=== PATIENT | female | born 1955 | race Caucasian/White ===

== ENCOUNTER → 2022-05-03 | Outpatient (CLI) | payer OTHER | LOC: M RAD 12:42 | PROVIDERS: ATTEND Surgery | DX: I73.9 Peripheral vascular disease, unspecified (principal) ==

== ENCOUNTER 2022-05-25 08:38 | Inpatient (IN) | payer OTHER ==
[~2022-05-25] VITALS: Ht 157.5 cm; Wt 67.7 kg
[2022-05-25] MEDS ORDERED: ATOR1TAB19 PO (09:15)
[2022-05-25] MEDS ORDERED: LISI10TA24 PO (09:15)
[2022-05-25] MEDS ORDERED: TRUL0.5I SC (09:15)
[2022-05-25] MEDS ORDERED: METF-838 PO (09:15)
[2022-05-25] MEDS ORDERED: ASPI81CH33 PO (09:15)
[2022-05-25] MEDS ORDERED: NS 1,000 ML IV ONE (15:15)
[2022-05-25 15:37] LABS: BASO # 0.1 10^3/uL (0.0-0.2); BASO % 0.9 % (0.0-1.0); EOS # 0.4 10^3/uL (0.0-0.5); EOS % 4.3 % (0.0-3.0); LYMPH # 3.7 10^3/uL (1.5-5.0); LYMPH % 39.5 % (24.0-44.0); MEAN CORPUSCULAR HEMOGLOBIN 29.2 pg (27.0-33.0); MEAN CORPUSCULAR HGB CONC 32.6 g/dl (32.0-36.5); MEAN CORPUSCULAR VOLUME 89.7 fl (80.0-96.0); MONO # 0.8 10^3/uL (0.0-0.8); MONO % 8.5 % (2.0-8.0); NEUTROPHILS # 4.3 10^3/uL (1.5-8.5); NEUTROPHILS % 46.6 % (36.0-66.0); PLATELET COUNT, AUTOMATED 183 10^3/uL (150-450); RED BLOOD COUNT 5.13 10^6/uL (4.00-5.40); WHITE BLOOD COUNT 9.3 10^3/uL (4.0-10.0)
[2022-05-25 15:51] LABS: INR 0.96
[2022-05-25 15:52] LABS: PARTIAL THROMBOPLASTIN TIME 27.8 SECONDS (24.8-34.2)
[2022-05-25] MEDS ORDERED: ISOVUE-370 76% 100ML VIAL As Ordered ONE (16:14)
[2022-05-25] MEDS ORDERED: MORPHINE 2 MG/ML 1ML VIAL IV PRN (16:15)
[2022-05-25] MEDS ORDERED: ASPIRIN 81 MG CHEW TABLET PO ONE (16:15)
[2022-05-25] MEDS ORDERED: HEPARIN SOD (PORCINE) 5000UNITS/ML 1ML VIAL/SYRINGE IV ONE (16:15)
[2022-05-25] MEDS ORDERED: HEPARIN DRIP 25,000 UNITS in IV 1 EA IV SCH ×2 (16:15→17:55)
[2022-05-25] MEDS ORDERED: ATORVASTATIN 20 MG TAB PO ONE (16:15)
[2022-05-25] MEDS ORDERED: ACETAMINOPHEN TAB 650MG DOSE (2X325MG) PO PRN (16:50)
[2022-05-25] MEDS ORDERED: NICOTINE 14 MG/24 HR TRANSDERMAL TD ONE (17:00)
[2022-05-25] MEDS ORDERED: GLUCAGON INJ 1MG VIAL SC PRN (17:20)
[2022-05-25] MEDS ORDERED: DEXTROSE 50% 50 ML SYRINGE IV PRN (17:20)
[2022-05-25] MEDS ORDERED: GLUCOSE 4GM CHEW TABLET PO PRN (17:20)
[2022-05-25] MEDS: INSULIN LISPRO (NovoLOG) PER UNIT SC SCH ×2 (17:30→21:00)
[2022-05-25] MEDS ORDERED: HEPARIN SOD (PORCINE) 5000UNITS/ML 1ML VIAL/SYRINGE IV PRN (17:55)
[2022-05-25 18:14] LABS: CHOLESTEROL RISK RATIO 3.28 (<5); HDL CHOLESTEROL 47.2 MG/DL (>40); LDL CHOLESTEROL 90.6 MG/DL (<100)
[2022-05-25] MEDS ORDERED: HOME MED LIST COMPLETE! XX SCH (18:50)
[2022-05-25 21:15] VITALS: BP 115/60
[2022-05-25] MEDS ORDERED: ONDANSETRON 4MG 2ML VIAL IV PRN (23:40)
[2022-05-26] VITALS (14 sets, daily range): BP systolic 97–145; BP diastolic 45–67
[2022-05-26] MEDS ORDERED: carisoprodoL 350 MG TAB PO PRN
[2022-05-26] MEDS ORDERED: PERCOCET 5MG/325MG TAB PO ONE
[2022-05-26] MEDS ORDERED: ONDANSETRON 4MG ORAL DISINTEGRATING TAB PO PRN (00:20)
[2022-05-26 04:23] LABS: HEMATOCRIT 39.9 % (36.0-47.0); HEMOGLOBIN 13.1 g/dl (12.0-15.5); MEAN CORPUSCULAR HGB CONC 32.8 g/dl (32.0-36.5); MEAN CORPUSCULAR VOLUME 88.3 fl (80.0-96.0); PLATELET COUNT, AUTOMATED 156 10^3/uL (150-450); RED BLOOD COUNT 4.52 10^6/uL (4.00-5.40); WHITE BLOOD COUNT 8.3 10^3/uL (4.0-10.0)
[2022-05-26 04:53] LABS: ALBUMIN 3.6 G/DL (3.2-5.2); ALT/SGPT 17 U/L (7.0-40); BILIRUBIN,TOTAL 0.4 MG/DL (0.3-1.2); BLOOD UREA NITROGEN 10 MG/DL (9-23); CALCIUM LEVEL 8.9 MG/DL (8.3-10.6); CARBON DIOXIDE LEVEL 27 MMOL/L (20-31); CHLORIDE LEVEL 104 MMOL/L (98-107); CREATININE FOR GFR 0.68 MG/DL (0.55-1.30); GLOMERULAR FILTRATION RATE > 60.0 (>45); GLUCOSE, FASTING 103 MG/DL (74-106); POTASSIUM SERUM 4.2 MMOL/L (3.5-5.1); SODIUM LEVEL 139 MMOL/L (136-145)
[2022-05-26] MEDS: ATORVASTATIN 20 MG TAB PO SCH (09:05)
[2022-05-26] MEDS: ASPIRIN 81MG ENTERIC TABLET PO SCH (09:05)
[2022-05-26] MEDS: hydroCHLOROthiazide 12.5 MG CAPSULE PO SCH (09:06)
[2022-05-26] MEDS: INSULIN LISPRO (NovoLOG) PER UNIT SC SCH ×4 (09:06→20:21)
[2022-05-26] MEDS ORDERED: VANCOMYCIN HCL 1,000 MG, VIAL MATE ADAPTER 1 EACH in NS 250 ML IV ONE (12:25)
[2022-05-26] MEDS ORDERED: LIDOCAINE 2% 100MG/5ML SDV (FOR ANES.) As Ordered ONE (12:51)
[2022-05-26] MEDS ORDERED: propofoL 200 MG/20 ML VIAL As Ordered ONE (12:51)
[2022-05-26] MEDS ORDERED: ROCURONIUM BROMIDE 50 MG/5 ML VIAL As Ordered ONE (12:51)
[2022-05-26] MEDS ORDERED: fentaNYL 100 MCG/2 ML INJECTION As Ordered ONE (12:52)
[2022-05-26] MEDS ORDERED: MIDAZOLAM INJ 2MG/2ML VIAL (J2250 PER 1MG) As Ordered ONE (12:53)
[2022-05-26] MEDS ORDERED: HEPARIN SOD (PORCINE) 5000UNITS/ML 1ML VIAL/SYRINGE As Ordered ONE ×3 (13:02→15:13)
[2022-05-26] MEDS ORDERED: ISOVUE-300 61% 50ML VIAL As Ordered ONE ×2 (13:02→14:24)
[2022-05-26] MEDS ORDERED: THROMBIN 20,000 UNITS KIT As Ordered ONE (13:02)
[2022-05-26] MEDS ORDERED: HYDROmorphone HCL 2MG/ML 1ML VIAL As Ordered ONE (14:48)
[2022-05-26] MEDS ORDERED: BUPIVACAINE HCL 0.5% 30ML VIAL As Ordered ONE (17:38)
[2022-05-26] MEDS ORDERED: LIDOCAINE 1% SDV 30ML VIAL As Ordered ONE (17:38)
[2022-05-26] MEDS ORDERED: fentaNYL 100 MCG/2 ML INJECTION IV PRN (18:30)
[2022-05-26] MEDS ORDERED: LR 1,000 ML IV SCH (18:30)
[2022-05-26] MEDS ORDERED: ONDANSETRON 4MG 2ML VIAL IV PRN (18:30)
[2022-05-26] MEDS ORDERED: MORPHINE 2 MG/ML 1ML VIAL IV PRN (18:30)
[2022-05-26] MEDS ORDERED: oxyCODONE 5MG TAB PO PRN (18:30)
[2022-05-26] MEDS ORDERED: CLOPIDOGREL 75 MG TAB PO STA (18:43)
[2022-05-26] MEDS ORDERED: PROTAMINE SULF 50MG/5ML VIAL (J2720 PER 10MG) As Ordered ONE (18:55)
[2022-05-26] MEDS ORDERED: PHENYLEPHRINE HCL INJ 10 MG in D5W 100 ML IV SCH (19:10)
[2022-05-26 19:12] LABS: HEMATOCRIT 33.2 % (36.0-47.0); MEAN CORPUSCULAR HEMOGLOBIN 29.2 pg (27.0-33.0); MEAN CORPUSCULAR HGB CONC 32.8 g/dl (32.0-36.5); PLATELET COUNT, AUTOMATED 159 10^3/uL (150-450); RED BLOOD COUNT 3.73 10^6/uL (4.00-5.40); WHITE BLOOD COUNT 11.6 10^3/uL (4.0-10.0)
[2022-05-26 19:31] LABS: HEMOGLOBIN 10.9 g/dl (12.0-15.5)
[2022-05-26 19:32] LABS: INR 1.1; PROTHROMBIN TIME 14.4 SECONDS (12.5-14.5)
[2022-05-26 19:33] LABS: PARTIAL THROMBOPLASTIN TIME 29.1 SECONDS (24.8-34.2)
[2022-05-26 19:41] LABS: BLOOD UREA NITROGEN 11 MG/DL (9-23); CALCIUM LEVEL 7.7 MG/DL (8.3-10.6); CARBON DIOXIDE LEVEL 24 MMOL/L (20-31); CHLORIDE LEVEL 106 MMOL/L (98-107); CREATININE FOR GFR 0.68 MG/DL (0.55-1.30); GLOMERULAR FILTRATION RATE > 60.0 (>45); GLUCOSE, FASTING 218 MG/DL (74-106); MAGNESIUM LEVEL 1.3 MG/DL (1.8-2.4); POTASSIUM SERUM 4.2 MMOL/L (3.5-5.1); SODIUM LEVEL 140 MMOL/L (136-145)
[2022-05-26] MEDS: LR 1,000 ML IV SCH (20:25)
[2022-05-26] MEDS ORDERED: MAGNESIUM OXIDE 400MG TAB (MAG-OX) PO ONE (22:00)
[2022-05-26] MEDS: TETRAHYDROZOLINE OPHTH 0.05% 15 ML BTL OU PRN (22:19)
[2022-05-27] VITALS (93 sets, daily range): BP systolic 68–151; BP diastolic 39–71
[2022-05-27] MEDS: PHENYLEPHRINE HCL INJ 50 MG in D5W 495 ML IV SCH ×2 (01:00→05:03)
[2022-05-27] MEDS ORDERED: PHENYLEPHRINE HCL INJ 50 MG in D5W 495 ML IV SCH (01:00)
[2022-05-27] MEDS: VANCOMYCIN HCL 1,000 MG, VIAL MATE ADAPTER 1 EACH in NS 250 ML IV SCH ×2 (01:52→13:27)
[2022-05-27] MEDS: LR 1,000 ML IV SCH (02:59)
[2022-05-27] MEDS ORDERED: KETOROLAC 30 MG/ML 1ML VIAL IV ONE (04:00)
[2022-05-27 05:11] LABS: HEMATOCRIT 26.8 % (36.0-47.0); MEAN CORPUSCULAR HEMOGLOBIN 29.3 pg (27.0-33.0); MEAN CORPUSCULAR HGB CONC 33.2 g/dl (32.0-36.5); MEAN CORPUSCULAR VOLUME 88.2 fl (80.0-96.0); PLATELET COUNT, AUTOMATED 138 10^3/uL (150-450); RED BLOOD COUNT 3.04 10^6/uL (4.00-5.40); WHITE BLOOD COUNT 10.6 10^3/uL (4.0-10.0)
[2022-05-27 05:15] LABS: HEMOGLOBIN 8.9 g/dl (12.0-15.5)
[2022-05-27 06:01] LABS: ALBUMIN 3.2 G/DL (3.2-5.2); ALT/SGPT 114 U/L (7.0-40); BILIRUBIN,TOTAL 0.4 MG/DL (0.3-1.2); BLOOD UREA NITROGEN 14 MG/DL (9-23); CALCIUM LEVEL 8.1 MG/DL (8.3-10.6); CARBON DIOXIDE LEVEL 25 MMOL/L (20-31); CHLORIDE LEVEL 105 MMOL/L (98-107); CREATININE FOR GFR 0.68 MG/DL (0.55-1.30); GLOMERULAR FILTRATION RATE > 60.0 (>45); GLUCOSE, FASTING 187 MG/DL (74-106); POTASSIUM SERUM 4.5 MMOL/L (3.5-5.1); SODIUM LEVEL 139 MMOL/L (136-145); TOTAL PROTEIN 4.9 G/DL (5.7-8.2)
[2022-05-27] MEDS ORDERED: ALBUTEROL 90 MCG/ACT 8GM HFA INHALER INH ONE (07:00)
[2022-05-27] MEDS: ASPIRIN 81MG ENTERIC TABLET PO SCH (08:19)
[2022-05-27] MEDS: CLOPIDOGREL 75 MG TAB PO SCH (08:19)
[2022-05-27] MEDS: ATORVASTATIN 20 MG TAB PO SCH (08:19)
[2022-05-27] MEDS: INSULIN LISPRO (NovoLOG) PER UNIT SC SCH ×4 (08:20→20:03)
[2022-05-27] MEDS ORDERED: ACETAMINOPHEN TAB 650MG DOSE (2X325MG) PO PRN (08:25)
[2022-05-27] MEDS: hydroCHLOROthiazide 12.5 MG CAPSULE PO SCH (08:54)
[2022-05-27] MEDS: NS 1,000 ML IV SCH ×2 (10:00→17:20)
[2022-05-27] MEDS ORDERED: NS 500 ML IV ONE (10:30)
[2022-05-27] MEDS: PANTOPRAZOLE 40MG TAB (PROTONIX) PO SCH (11:40)
[2022-05-27] MEDS: NORCO, ANEXSIA 5/325MG TABLET (HYDROcodone/ACETAMINOPHEN) PO PRN ×2 (11:42→19:22)
[2022-05-27] MEDS: NICOTINE 14 MG/24 HR TRANSDERMAL TD SCH (11:43)
[2022-05-27 12:21] LABS: MAGNESIUM LEVEL 1.5 MG/DL (1.8-2.4)
[2022-05-27] MEDS: HEPARIN SOD (PORCINE) 5000UNITS/ML 1ML VIAL/SYRINGE SQ SCH ×2 (13:30→21:06)
[2022-05-27] MEDS ORDERED: MAG SULF 1GM/100ML (MAG RUN) 1 GM in IV 1 EA IV ONE (19:00)
[2022-05-28] VITALS (38 sets, daily range): BP systolic 87–145; BP diastolic 42–64
[2022-05-28] MEDS: VANCOMYCIN HCL 1,000 MG, VIAL MATE ADAPTER 1 EACH in NS 250 ML IV SCH (01:35)
[2022-05-28] MEDS: NORCO, ANEXSIA 5/325MG TABLET (HYDROcodone/ACETAMINOPHEN) PO PRN (02:48)
[2022-05-28] MEDS: ALBUTEROL 90 MCG/ACT 8GM HFA INHALER INH PRN ×2 (03:09→18:44)
[2022-05-28] MEDS: PHENYLEPHRINE HCL INJ 50 MG in D5W 495 ML IV SCH (05:04)
[2022-05-28] MEDS: HEPARIN SOD (PORCINE) 5000UNITS/ML 1ML VIAL/SYRINGE SQ SCH ×3 (05:05→21:17)
[2022-05-28 05:25] LABS: HEMATOCRIT 24.5 % (36.0-47.0); MEAN CORPUSCULAR HEMOGLOBIN 29.5 pg (27.0-33.0); MEAN CORPUSCULAR HGB CONC 32.7 g/dl (32.0-36.5); MEAN CORPUSCULAR VOLUME 90.4 fl (80.0-96.0); PLATELET COUNT, AUTOMATED 114 10^3/uL (150-450); RED BLOOD COUNT 2.71 10^6/uL (4.00-5.40); WHITE BLOOD COUNT 10.8 10^3/uL (4.0-10.0)
[2022-05-28] MEDS: INSULIN LISPRO (NovoLOG) PER UNIT SC SCH ×4 (07:30→21:00)
[2022-05-28 07:40] LABS: ALBUMIN 2.8 G/DL (3.2-5.2); ALT/SGPT 60 U/L (7.0-40); BILIRUBIN,TOTAL 0.3 MG/DL (0.3-1.2); BLOOD UREA NITROGEN 14 MG/DL (9-23); CALCIUM LEVEL 8.1 MG/DL (8.3-10.6); CARBON DIOXIDE LEVEL 25 MMOL/L (20-31); CHLORIDE LEVEL 112 MMOL/L (98-107); CREATININE FOR GFR 0.69 MG/DL (0.55-1.30); GLOMERULAR FILTRATION RATE > 60.0 (>45); GLUCOSE, FASTING 139 MG/DL (74-106); POTASSIUM SERUM 4.2 MMOL/L (3.5-5.1); SODIUM LEVEL 143 MMOL/L (136-145); TOTAL PROTEIN 4.4 G/DL (5.7-8.2)
[2022-05-28] MEDS ORDERED: KETOROLAC 30 MG/ML 1ML VIAL IV ONE (08:05)
[2022-05-28] MEDS ORDERED: MIRALAX *UNIT DOSE* 17GM PACKET PO PRN (08:50)
[2022-05-28] MEDS: ASPIRIN 81MG ENTERIC TABLET PO SCH (08:52)
[2022-05-28] MEDS: CLOPIDOGREL 75 MG TAB PO SCH (08:52)
[2022-05-28] MEDS: PANTOPRAZOLE 40MG TAB (PROTONIX) PO SCH (08:53)
[2022-05-28] MEDS: NICOTINE 14 MG/24 HR TRANSDERMAL TD SCH (08:53)
[2022-05-28] MEDS: ATORVASTATIN 20 MG TAB PO SCH (08:54)
[2022-05-28] MEDS: TETRAHYDROZOLINE OPHTH 0.05% 15 ML BTL OU PRN (08:55)
[2022-05-28 10:06] LABS: MAGNESIUM LEVEL 1.6 MG/DL (1.8-2.4)
[2022-05-28] MEDS ORDERED: ISOVUE-370 76% 100ML VIAL As Ordered ONE (10:37)
[2022-05-28] MEDS: PERCOCET 5MG/325MG TAB PO PRN ×3 (12:13→22:55)
[2022-05-28] MEDS: DOCUSATE SODIUM 100MG CAPSULE PO SCH ×2 (12:14→21:01)
[2022-05-28] MEDS: MAGNESIUM OXIDE 400MG TAB (MAG-OX) PO SCH ×2 (12:14→21:01)
[2022-05-28 14:00] LABS: HEMATOCRIT 24.7 % (36.0-47.0); MEAN CORPUSCULAR HEMOGLOBIN 29.5 pg (27.0-33.0); MEAN CORPUSCULAR HGB CONC 32.4 g/dl (32.0-36.5); MEAN CORPUSCULAR VOLUME 91.1 fl (80.0-96.0); PLATELET COUNT, AUTOMATED 103 10^3/uL (150-450); RED BLOOD COUNT 2.71 10^6/uL (4.00-5.40); WHITE BLOOD COUNT 11.5 10^3/uL (4.0-10.0)
[2022-05-28] MEDS: NS 1,000 ML IV SCH (14:10)
[2022-05-28 14:49] LABS: IRON (FE) 21 UG/DL (50-170); PERCENT SATURATION 10.3 % (13.2-45.0); TOTAL IRON BINDING CAPACITY 204 UG/DL (250-425)
[2022-05-28] MEDS ORDERED: FUROSEMIDE 20MG/2ML VIAL (J1940) IV ONE (19:20)
[2022-05-28] MEDS: MAG SULF 1GM/100ML (MAG RUN) 1 GM in IV 1 EA IV SCH ×2 (19:42→21:00)
[2022-05-28] MEDS: SENNA 8.6 MG TAB (SENOKOT) PO SCH (21:00)
[2022-05-29 04:35] VITALS: BP 111/65
[2022-05-29] MEDS: PERCOCET 5MG/325MG TAB PO PRN ×4 (04:49→19:37)
[2022-05-29] MEDS: HEPARIN SOD (PORCINE) 5000UNITS/ML 1ML VIAL/SYRINGE SQ SCH ×3 (05:17→23:10)
[2022-05-29 06:12] LABS: HEMATOCRIT 25.3 % (36.0-47.0); HEMOGLOBIN 8.2 g/dl (12.0-15.5); MEAN CORPUSCULAR HEMOGLOBIN 29.4 pg (27.0-33.0); MEAN CORPUSCULAR HGB CONC 32.4 g/dl (32.0-36.5); MEAN CORPUSCULAR VOLUME 90.7 fl (80.0-96.0); PLATELET COUNT, AUTOMATED 100 10^3/uL (150-450); RED BLOOD COUNT 2.79 10^6/uL (4.00-5.40); WHITE BLOOD COUNT 10.7 10^3/uL (4.0-10.0)
[2022-05-29 06:39] LABS: ALBUMIN 2.7 G/DL (3.2-5.2); ALT/SGPT 42 U/L (7.0-40); BILIRUBIN,TOTAL 0.5 MG/DL (0.3-1.2); BLOOD UREA NITROGEN 13 MG/DL (9-23); CALCIUM LEVEL 8.3 MG/DL (8.3-10.6); CARBON DIOXIDE LEVEL 26 MMOL/L (20-31); CHLORIDE LEVEL 107 MMOL/L (98-107); CREATININE FOR GFR 0.72 MG/DL (0.55-1.30); GLOMERULAR FILTRATION RATE > 60.0 (>45); GLUCOSE, FASTING 132 MG/DL (74-106); MAGNESIUM LEVEL 1.8 MG/DL (1.8-2.4); POTASSIUM SERUM 3.9 MMOL/L (3.5-5.1); SODIUM LEVEL 141 MMOL/L (136-145); TOTAL PROTEIN 4.6 G/DL (5.7-8.2)
[2022-05-29] MEDS: CLOPIDOGREL 75 MG TAB PO SCH (08:08)
[2022-05-29] MEDS: INSULIN LISPRO (NovoLOG) PER UNIT SC SCH ×4 (08:08→21:00)
[2022-05-29] MEDS: PANTOPRAZOLE 40MG TAB (PROTONIX) PO SCH (08:08)
[2022-05-29] MEDS: DOCUSATE SODIUM 100MG CAPSULE PO SCH ×2 (08:08→19:35)
[2022-05-29] MEDS: NICOTINE 14 MG/24 HR TRANSDERMAL TD SCH (08:08)
[2022-05-29] MEDS: MAGNESIUM OXIDE 400MG TAB (MAG-OX) PO SCH ×2 (08:09→19:35)
[2022-05-29] MEDS: ATORVASTATIN 20 MG TAB PO SCH (08:09)
[2022-05-29] MEDS: ASPIRIN 81MG ENTERIC TABLET PO SCH (08:09)
[2022-05-29 08:14] VITALS: BP 109/56
[2022-05-29 12:29] VITALS: BP 101/50
[2022-05-29] MEDS ORDERED: diphenhydrAMINE CREAM 30GM TOP PRN (14:40)
[2022-05-29 18:00] VITALS: BP 118/58
[2022-05-29] MEDS: SENNA 8.6 MG TAB (SENOKOT) PO SCH (19:35)
[2022-05-29 22:00] VITALS: BP 100/51
[2022-05-29] MEDS: ALBUTEROL 90 MCG/ACT 8GM HFA INHALER INH PRN (23:48)
[2022-05-30] MEDS: PERCOCET 5MG/325MG TAB PO PRN ×5 (01:12→21:02)
[2022-05-30 06:49] VITALS: BP 107/69
[2022-05-30] MEDS: HEPARIN SOD (PORCINE) 5000UNITS/ML 1ML VIAL/SYRINGE SQ SCH ×3 (06:56→21:00)
[2022-05-30 07:28] LABS: HEMATOCRIT 26.8 % (36.0-47.0); HEMOGLOBIN 8.6 g/dl (12.0-15.5); MEAN CORPUSCULAR HEMOGLOBIN 29.7 pg (27.0-33.0); MEAN CORPUSCULAR HGB CONC 32.1 g/dl (32.0-36.5); MEAN CORPUSCULAR VOLUME 92.4 fl (80.0-96.0); PLATELET COUNT, AUTOMATED 125 10^3/uL (150-450); WHITE BLOOD COUNT 10.3 10^3/uL (4.0-10.0)
[2022-05-30 07:58] LABS: ALBUMIN 2.9 G/DL (3.2-5.2); ALT/SGPT 36 U/L (7.0-40); BILIRUBIN,TOTAL 0.7 MG/DL (0.3-1.2); BLOOD UREA NITROGEN 12 MG/DL (9-23); CALCIUM LEVEL 8.3 MG/DL (8.3-10.6); CARBON DIOXIDE LEVEL 26 MMOL/L (20-31); CHLORIDE LEVEL 103 MMOL/L (98-107); CREATININE FOR GFR 0.72 MG/DL (0.55-1.30); GLOMERULAR FILTRATION RATE > 60.0 (>45); GLUCOSE, FASTING 149 MG/DL (74-106); MAGNESIUM LEVEL 1.7 MG/DL (1.8-2.4); POTASSIUM SERUM 3.9 MMOL/L (3.5-5.1); SODIUM LEVEL 139 MMOL/L (136-145); TOTAL PROTEIN 5.4 G/DL (5.7-8.2)
[2022-05-30] MEDS: DOCUSATE SODIUM 100MG CAPSULE PO SCH ×2 (08:19→21:00)
[2022-05-30] MEDS: MAGNESIUM OXIDE 400MG TAB (MAG-OX) PO SCH ×2 (08:19→21:00)
[2022-05-30] MEDS: ATORVASTATIN 20 MG TAB PO SCH (08:19)
[2022-05-30] MEDS: PANTOPRAZOLE 40MG TAB (PROTONIX) PO SCH (08:19)
[2022-05-30] MEDS: ASPIRIN 81MG ENTERIC TABLET PO SCH (08:19)
[2022-05-30] MEDS: CLOPIDOGREL 75 MG TAB PO SCH (08:19)
[2022-05-30] MEDS: NICOTINE 14 MG/24 HR TRANSDERMAL TD SCH (08:22)
[2022-05-30] MEDS: INSULIN LISPRO (NovoLOG) PER UNIT SC SCH ×4 (08:23→21:00)
[2022-05-30] MEDS ORDERED: MORPHINE 2 MG/ML 1ML VIAL IV ONE ×2 (08:45→08:55)
[2022-05-30] MEDS ORDERED: FLEET OIL RETENTION ENEMA PR PRN (08:50)
[2022-05-30] MEDS: MIRALAX *UNIT DOSE* 17GM PACKET PO SCH (09:00)
[2022-05-30] MEDS: FUROSEMIDE 20MG/2ML VIAL (J1940) IV SCH (09:23)
[2022-05-30 14:00] VITALS: BP 102/52
[2022-05-30] MEDS: BISACODYL 10 MG SUPP PR SCH (16:32)
[2022-05-30] MEDS: SENNA 8.6 MG TAB (SENOKOT) PO SCH (21:00)
[2022-05-30 22:00] VITALS: BP 107/53
[2022-05-31] MEDS: PERCOCET 5MG/325MG TAB PO PRN ×4 (01:13→23:12)
[2022-05-31] MEDS: HEPARIN SOD (PORCINE) 5000UNITS/ML 1ML VIAL/SYRINGE SQ SCH ×3 (05:25→20:39)
[2022-05-31 06:00] VITALS: BP 128/60
[2022-05-31 06:07] LABS: HEMATOCRIT 25.2 % (36.0-47.0); HEMOGLOBIN 8.3 g/dl (12.0-15.5); MEAN CORPUSCULAR HEMOGLOBIN 29.9 pg (27.0-33.0); MEAN CORPUSCULAR HGB CONC 32.9 g/dl (32.0-36.5); MEAN CORPUSCULAR VOLUME 90.6 fl (80.0-96.0); PLATELET COUNT, AUTOMATED 141 10^3/uL (150-450); RED BLOOD COUNT 2.78 10^6/uL (4.00-5.40); WHITE BLOOD COUNT 9.1 10^3/uL (4.0-10.0)
[2022-05-31 06:30] LABS: ALBUMIN 2.6 G/DL (3.2-5.2); ALT/SGPT 26 U/L (7.0-40); BILIRUBIN,TOTAL 0.6 MG/DL (0.3-1.2); BLOOD UREA NITROGEN 8 MG/DL (9-23); CALCIUM LEVEL 7.8 MG/DL (8.3-10.6); CARBON DIOXIDE LEVEL 27 MMOL/L (20-31); CHLORIDE LEVEL 103 MMOL/L (98-107); CREATININE FOR GFR 0.68 MG/DL (0.55-1.30); GLOMERULAR FILTRATION RATE > 60.0 (>45); GLUCOSE, FASTING 126 MG/DL (74-106); MAGNESIUM LEVEL 1.5 MG/DL (1.8-2.4); POTASSIUM SERUM 3.9 MMOL/L (3.5-5.1); SODIUM LEVEL 139 MMOL/L (136-145); TOTAL PROTEIN 4.8 G/DL (5.7-8.2)
[2022-05-31] MEDS ORDERED: MAG SULF 1GM/100ML (MAG RUN) 1 GM in IV 1 EA IV ONE (07:45)
[2022-05-31] MEDS: INSULIN LISPRO (NovoLOG) PER UNIT SC SCH ×4 (08:37→21:00)
[2022-05-31] MEDS: NICOTINE 14 MG/24 HR TRANSDERMAL TD SCH (08:38)
[2022-05-31] MEDS: MIRALAX *UNIT DOSE* 17GM PACKET PO SCH (08:38)
[2022-05-31] MEDS: FUROSEMIDE 20MG/2ML VIAL (J1940) IV SCH (08:39)
[2022-05-31] MEDS: DOCUSATE SODIUM 100MG CAPSULE PO SCH ×2 (08:39→20:40)
[2022-05-31] MEDS: CLOPIDOGREL 75 MG TAB PO SCH (08:39)
[2022-05-31] MEDS: ATORVASTATIN 20 MG TAB PO SCH (08:39)
[2022-05-31] MEDS: ASPIRIN 81MG ENTERIC TABLET PO SCH (08:39)
[2022-05-31] MEDS: MAGNESIUM OXIDE 400MG TAB (MAG-OX) PO SCH ×3 (08:39→20:39)
[2022-05-31] MEDS: PANTOPRAZOLE 40MG TAB (PROTONIX) PO SCH (08:39)
[2022-05-31] MEDS: BISACODYL 10 MG SUPP PR SCH ×2 (08:40→20:40)
[2022-05-31 14:00] VITALS: BP 126/60
[2022-05-31] MEDS: SENNA 8.6 MG TAB (SENOKOT) PO SCH (20:40)
[2022-05-31 22:00] VITALS: BP 112/59
[2022-06-01 06:00] VITALS: BP 119/56
[2022-06-01] MEDS: HEPARIN SOD (PORCINE) 5000UNITS/ML 1ML VIAL/SYRINGE SQ SCH ×2 (06:13→13:22)
[2022-06-01] MEDS: PERCOCET 5MG/325MG TAB PO PRN ×2 (06:14→12:16)
[2022-06-01 06:33] LABS: HEMATOCRIT 28.7 % (36.0-47.0); MEAN CORPUSCULAR HEMOGLOBIN 29.1 pg (27.0-33.0); MEAN CORPUSCULAR HGB CONC 31.4 g/dl (32.0-36.5); MEAN CORPUSCULAR VOLUME 92.9 fl (80.0-96.0); PLATELET COUNT, AUTOMATED 199 10^3/uL (150-450); RED BLOOD COUNT 3.09 10^6/uL (4.00-5.40); WHITE BLOOD COUNT 9.2 10^3/uL (4.0-10.0)
[2022-06-01 07:01] LABS: ALBUMIN 2.7 G/DL (3.2-5.2); ALT/SGPT 25 U/L (7.0-40); BILIRUBIN,TOTAL 0.5 MG/DL (0.3-1.2); BLOOD UREA NITROGEN 10 MG/DL (9-23); CARBON DIOXIDE LEVEL 30 MMOL/L (20-31); CHLORIDE LEVEL 105 MMOL/L (98-107); GLOMERULAR FILTRATION RATE > 60.0 (>45); GLUCOSE, FASTING 133 MG/DL (74-106); MAGNESIUM LEVEL 1.8 MG/DL (1.8-2.4); POTASSIUM SERUM 4.2 MMOL/L (3.5-5.1); SODIUM LEVEL 142 MMOL/L (136-145); TOTAL PROTEIN 5.1 G/DL (5.7-8.2)
[2022-06-01 08:00] VITALS: BP 116/58
[2022-06-01] MEDS: BISACODYL 10 MG SUPP PR SCH (09:00)
[2022-06-01] MEDS: FUROSEMIDE 20MG/2ML VIAL (J1940) IV SCH (09:54)
[2022-06-01] MEDS: MAGNESIUM OXIDE 400MG TAB (MAG-OX) PO SCH (09:55)
[2022-06-01] MEDS: PANTOPRAZOLE 40MG TAB (PROTONIX) PO SCH (09:55)
[2022-06-01] MEDS: DOCUSATE SODIUM 100MG CAPSULE PO SCH (09:55)
[2022-06-01] MEDS: ASPIRIN 81MG ENTERIC TABLET PO SCH (09:55)
[2022-06-01] MEDS: INSULIN LISPRO (NovoLOG) PER UNIT SC SCH ×2 (10:03→11:42)
[2022-06-01] MEDS: ATORVASTATIN 20 MG TAB PO SCH (10:23)
[2022-06-01] MEDS: CLOPIDOGREL 75 MG TAB PO SCH (10:24)
[2022-06-01] MEDS: MIRALAX *UNIT DOSE* 17GM PACKET PO SCH (10:24)
[2022-06-01] MEDS: NICOTINE 14 MG/24 HR TRANSDERMAL TD SCH (10:25)
[2022-06-01] MEDS ORDERED: MAGN400T2 PO (11:07)
[2022-06-01] MEDS ORDERED: ACET1TAB55 PO (11:07)
[2022-06-01] MEDS ORDERED: OXYC1TAB23 PO (11:07)
[2022-06-01] MEDS ORDERED: CLOP75TA2 PO (11:07)
[2022-06-01] MEDS ORDERED: LASI20TA3 PO (11:07)
[2022-06-01] MEDS ORDERED: COLA100C5 PO (11:07)
== END 2022-06-01 14:48 | disposition home or self-care (01) | DRG 272 ==
LOC: M ED 08:38 → M ED INP 16:48 → ENRESERV 20:01 → M MSPAV 21:17 → M ICU 05-26 19:56 → M MSPAV 05-29 18:03
PROVIDERS: ADMIT Internal Medicine; ATTEND Family Medicine
PROC: 047 Lower Arteries, Dilation (ICD-10-PCS; 2022-05-26)
PROC: 047 Lower Arteries, Dilation (ICD-10-PCS; 2022-05-26)
PROC: 04CK0ZZ Extirpation of Matter from Right Femoral Artery, Open Approach (ICD-10-PCS; 2022-05-26)
PROC: 04UK0JZ Supplement Right Femoral Artery with Synthetic Substitute, Open Approach (ICD-10-PCS; 2022-05-26)
PROC: 04CH0ZZ Extirpation of Matter from Right External Iliac Artery, Open Approach (ICD-10-PCS; principal; 2022-05-26 11:00)
PROC: B246ZZZ Ultrasonography of Right and Left Heart (ICD-10-PCS; 2022-05-27)
DX: I70.221 Atherosclerosis of native arteries of extremities with rest pain, right leg (principal); I10 Essential (primary) hypertension; F17.210 Nicotine dependence, cigarettes, uncomplicated; E11.51 Type 2 diabetes mellitus with diabetic peripheral angiopathy without gangrene; E78.5 Hyperlipidemia, unspecified; Z90.49 Acquired absence of other specified parts of digestive tract; Z90.79 Acquired absence of other genital organ(s); R26.89 Other abnormalities of gait and mobility; Z79.82 Long term (current) use of aspirin; Z79.84 Long term (current) use of oral hypoglycemic drugs; Z79.899 Other long term (current) drug therapy; Z88.0 Allergy status to penicillin; Z88.5 Allergy status to narcotic agent; Z91.048 Other nonmedicinal substance allergy status; Z20.822 Contact with and (suspected) exposure to COVID-19; E11.42 Type 2 diabetes mellitus with diabetic polyneuropathy; I95.81 Postprocedural hypotension; G57.93 Unspecified mononeuropathy of bilateral lower limbs; J44.9 Chronic obstructive pulmonary disease, unspecified; E83.42 Hypomagnesemia

== ENCOUNTER 2022-06-21 12:03 | Inpatient (IN) | payer OTHER ==
[~2022-06-21] VITALS: Ht 157.5 cm; Wt 64.6 kg
[2022-06-21] MEDS: NICOTINE 14 MG/24 HR TRANSDERMAL TD SCH (09:00)
[~2022-06-21 12:03] MED LIST: ACET1TAB55 PO; ASPI81CH33 PO; ATOR1TAB19 PO; CLOP75TA2 PO; COLA100C5 PO; LASI20TA3 PO; LISI10TA24 PO; MAGN400T2 PO; METF-838 PO; OXYC1TAB23 PO; TRUL0.5I SC
[2022-06-21 12:42] VITALS: BP 128/78
[2022-06-21 13:24] LABS: BASO # 0.1 10^3/uL (0.0-0.2); EOS # 0.5 10^3/uL (0.0-0.5); EOS % 6.7 % (0.0-3.0); HEMATOCRIT 40.7 % (36.0-47.0); LYMPH # 2.1 10^3/uL (1.5-5.0); LYMPH % 30.2 % (24.0-44.0); MEAN CORPUSCULAR HEMOGLOBIN 29.1 pg (27.0-33.0); MEAN CORPUSCULAR HGB CONC 31.9 g/dl (32.0-36.5); MEAN CORPUSCULAR VOLUME 91.3 fl (80.0-96.0); MONO # 0.6 10^3/uL (0.0-0.8); MONO % 8.3 % (2.0-8.0); NEUTROPHILS # 3.7 10^3/uL (1.5-8.5); NEUTROPHILS % 53.5 % (36.0-66.0); PLATELET COUNT, AUTOMATED 248 10^3/uL (150-450); RED BLOOD COUNT 4.46 10^6/uL (4.00-5.40); WHITE BLOOD COUNT 6.9 10^3/uL (4.0-10.0)
[2022-06-21 13:59] LABS: BLOOD UREA NITROGEN 15 MG/DL (9-23); CARBON DIOXIDE LEVEL 26 MMOL/L (20-31); CHLORIDE LEVEL 100 MMOL/L (98-107); CREATININE FOR GFR 0.71 MG/DL (0.55-1.30); GLOMERULAR FILTRATION RATE > 60.0 (>45); GLUCOSE, FASTING 101 MG/DL (74-106); POTASSIUM SERUM 4.8 MMOL/L (3.5-5.1); SODIUM LEVEL 133 MMOL/L (136-145)
[2022-06-21 14:00] LABS: ERYTHROCYTE SEDIMENTATION RATE 17 mm/hr (0-30)
[2022-06-21] MEDS: IPRATROPIUM 0.5MG/ALBUTEROL 2.5MG INH SOL UD 3ML (DUONEB) NEB SCH ×2 (14:00→20:39)
[2022-06-21] MEDS ORDERED: ISOVUE-370 76% 100ML VIAL As Ordered ONE (15:08)
[2022-06-21] MEDS ORDERED: IPRATROPIUM 0.5MG/ALBUTEROL 2.5MG INH SOL UD 3ML (DUONEB) NEB PRN (15:35)
[2022-06-21] MEDS ORDERED: DEXTROSE 50% 50ML SYRINGE IV PRN (15:35)
[2022-06-21] MEDS ORDERED: GLUCAGON INJ 1MG VIAL SC PRN (15:35)
[2022-06-21] MEDS ORDERED: GLUCOSE 4GM CHEW TABLET PO PRN (15:35)
[2022-06-21 16:00] VITALS: BP 132/62
[2022-06-21] MEDS: CEFEPIME HCL 2 GM in D5W MINI-BAG PLUS 50 ML IV SCH (16:28)
[2022-06-21] MEDS: INSULIN LISPRO (NovoLOG) PER UNIT SC SCH ×2 (16:28→21:00)
[2022-06-21] MEDS: metroNIDAZOLE 500 MG in IV 1 EA IV SCH (16:54)
[2022-06-21] MEDS ORDERED: HOME MED LIST COMPLETE! XX SCH (18:45)
[2022-06-21 20:00] VITALS: BP 110/58
[2022-06-21] MEDS ORDERED: VANCOMYCIN HCL 750 MG, VIAL MATE ADAPTER 1 EACH in D5W 250 ML IV ONE ×2 (21:00→22:00)
[2022-06-21] MEDS: ATORVASTATIN 10 MG TAB PO SCH (21:16)
[2022-06-21] MEDS: ASPIRIN 81MG ENTERIC TABLET PO SCH (21:16)
[2022-06-21] MEDS: NORCO, ANEXSIA 5/325MG TABLET (HYDROcodone/ACETAMINOPHEN) PO PRN (21:16)
[2022-06-21] MEDS: HEPARIN SOD (PORCINE) 5000UNITS/ML 1ML VIAL/SYRINGE SQ SCH (21:18)
[2022-06-21] MEDS: NS 0.45% 1,000 ML IV SCH (21:18)
[2022-06-22] VITALS (12 sets, daily range): BP systolic 94–153; BP diastolic 48–68
[2022-06-22] MEDS: metroNIDAZOLE 500 MG in IV 1 EA IV SCH ×3 (01:19→20:12)
[2022-06-22] MEDS: IPRATROPIUM 0.5MG/ALBUTEROL 2.5MG INH SOL UD 3ML (DUONEB) NEB SCH ×2 (02:30→07:52)
[2022-06-22] MEDS: CEFEPIME HCL 2 GM in D5W MINI-BAG PLUS 50 ML IV SCH ×2 (03:45→16:17)
[2022-06-22] MEDS: HEPARIN SOD (PORCINE) 5000UNITS/ML 1ML VIAL/SYRINGE SQ SCH ×3 (05:16→20:53)
[2022-06-22 05:21] LABS: HEMATOCRIT 32.3 % (36.0-47.0); HEMOGLOBIN 10.4 g/dl (12.0-15.5); MEAN CORPUSCULAR HEMOGLOBIN 29.1 pg (27.0-33.0); MEAN CORPUSCULAR HGB CONC 32.2 g/dl (32.0-36.5); MEAN CORPUSCULAR VOLUME 90.2 fl (80.0-96.0); PLATELET COUNT, AUTOMATED 187 10^3/uL (150-450); RED BLOOD COUNT 3.58 10^6/uL (4.00-5.40); WHITE BLOOD COUNT 5.2 10^3/uL (4.0-10.0)
[2022-06-22] MEDS: NORCO, ANEXSIA 5/325MG TABLET (HYDROcodone/ACETAMINOPHEN) PO PRN ×2 (05:21→14:05)
[2022-06-22 05:28] LABS: INR 1.01; PROTHROMBIN TIME 13.5 SECONDS (12.5-14.5)
[2022-06-22 05:29] LABS: PARTIAL THROMBOPLASTIN TIME 30.9 SECONDS (24.8-34.2)
[2022-06-22 05:33] LABS: MAGNESIUM LEVEL 1.7 MG/DL (1.8-2.4)
[2022-06-22 05:35] LABS: BLOOD UREA NITROGEN 19 MG/DL (9-23); CALCIUM LEVEL 8.8 MG/DL (8.3-10.6); CARBON DIOXIDE LEVEL 25 MMOL/L (20-31); CHLORIDE LEVEL 105 MMOL/L (98-107); CREATININE FOR GFR 0.75 MG/DL (0.55-1.30); GLOMERULAR FILTRATION RATE > 60.0 (>45); GLUCOSE, FASTING 98 MG/DL (74-106); POTASSIUM SERUM 4.7 MMOL/L (3.5-5.1); SODIUM LEVEL 135 MMOL/L (136-145)
[2022-06-22] MEDS: VANCOMYCIN HCL 750 MG, VIAL MATE ADAPTER 1 EACH in D5W 250 ML IV SCH ×2 (06:08→19:00)
[2022-06-22] MEDS: INSULIN LISPRO (NovoLOG) PER UNIT SC SCH ×4 (07:10→20:02)
[2022-06-22] MEDS ORDERED: MAG SULF 1GM/100ML (MAG RUN) 1 GM in IV 1 EA IV ONE (08:00)
[2022-06-22] MEDS ORDERED: ASPIRIN 81MG ENTERIC TABLET PO ONE (08:10)
[2022-06-22] MEDS: CLOPIDOGREL 75 MG TAB PO SCH (08:22)
[2022-06-22] MEDS: MAGNESIUM OXIDE 400MG TAB (MAG-OX) PO SCH (08:22)
[2022-06-22] MEDS: NICOTINE 14 MG/24 HR TRANSDERMAL TD SCH (08:23)
[2022-06-22] MEDS ORDERED: MIDAZOLAM INJ 2MG/2ML VIAL (J2250 PER 1MG) As Ordered ONE (17:14)
[2022-06-22] MEDS ORDERED: ROCURONIUM BROMIDE 50MG/5ML VIAL As Ordered ONE (17:14)
[2022-06-22] MEDS ORDERED: SUGAMMADEX SODIUM 500 MG/5 ML VIAL (BRIDION) As Ordered ONE (17:14)
[2022-06-22] MEDS ORDERED: propofoL 200 MG/20 ML VIAL As Ordered ONE (17:14)
[2022-06-22] MEDS ORDERED: LIDOCAINE 2% 100MG/5ML SDV (FOR ANES.) As Ordered ONE (17:14)
[2022-06-22] MEDS ORDERED: fentaNYL 100 MCG/2 ML INJECTION As Ordered ONE (17:14)
[2022-06-22] MEDS ORDERED: ONDANSETRON 4MG 2ML VIAL As Ordered ONE (17:14)
[2022-06-22] MEDS ORDERED: METOCLOPRAMIDE INJ 10MG/2ML VIAL As Ordered ONE (17:14)
[2022-06-22] MEDS ORDERED: VANCOMYCIN 1000MG/20ML VIAL As Ordered ONE (17:50)
[2022-06-22] MEDS ORDERED: LIDOCAINE 1% MDV 20ML VIAL As Ordered ONE (18:03)
[2022-06-22] MEDS ORDERED: HYDROMORPHONE HCL 0.5 MG/ 0.5 ML SYRINGE (J1170 PER 1) IV PRN (18:30)
[2022-06-22] MEDS ORDERED: ONDANSETRON 4MG 2ML VIAL IV PRN (18:30)
[2022-06-22] MEDS ORDERED: LR 1,000 ML IV SCH (18:30)
[2022-06-22] MEDS ORDERED: METOCLOPRAMIDE INJ 10MG/2ML VIAL IV PRN (18:30)
[2022-06-22] MEDS: fentaNYL 100 MCG/2 ML INJECTION IV PRN ×3 (18:49→19:15)
[2022-06-22] MEDS: oxyCODONE 5MG TAB PO PRN ×2 (19:09→19:38)
[2022-06-22] MEDS: NS 0.45% 1,000 ML IV SCH (20:10)
[2022-06-22] MEDS: ATORVASTATIN 10 MG TAB PO SCH (20:53)
[2022-06-22] MEDS: ASPIRIN 81MG ENTERIC TABLET PO SCH (20:53)
[2022-06-23 01:00] VITALS: BP 111/57
[2022-06-23] MEDS: metroNIDAZOLE 500 MG in IV 1 EA IV SCH ×3 (01:00→16:35)
[2022-06-23] MEDS: NORCO, ANEXSIA 5/325MG TABLET (HYDROcodone/ACETAMINOPHEN) PO PRN ×4 (02:26→22:18)
[2022-06-23] MEDS: CEFEPIME HCL 2 GM in D5W MINI-BAG PLUS 50 ML IV SCH ×2 (03:34→15:59)
[2022-06-23 04:05] VITALS: BP 143/62
[2022-06-23] MEDS: HEPARIN SOD (PORCINE) 5000UNITS/ML 1ML VIAL/SYRINGE SQ SCH ×3 (06:11→21:03)
[2022-06-23] MEDS: VANCOMYCIN HCL 750 MG, VIAL MATE ADAPTER 1 EACH in D5W 250 ML IV SCH ×2 (06:11→17:41)
[2022-06-23] MEDS: ACETAMINOPHEN TAB 650MG DOSE (2X325MG) PO PRN ×2 (06:23→21:05)
[2022-06-23 06:46] LABS: HEMATOCRIT 31.5 % (36.0-47.0); HEMOGLOBIN 10.2 g/dl (12.0-15.5); MEAN CORPUSCULAR HEMOGLOBIN 29.1 pg (27.0-33.0); MEAN CORPUSCULAR HGB CONC 32.4 g/dl (32.0-36.5); PLATELET COUNT, AUTOMATED 187 10^3/uL (150-450); WHITE BLOOD COUNT 5.3 10^3/uL (4.0-10.0)
[2022-06-23 07:07] LABS: MAGNESIUM LEVEL 1.8 MG/DL (1.8-2.4); VANCOMYCIN LEVEL TROUGH 22.4 UG/ML (10.0-20.0)
[2022-06-23 07:08] LABS: BLOOD UREA NITROGEN 15 MG/DL (9-23); CALCIUM LEVEL 8.9 MG/DL (8.3-10.6); CARBON DIOXIDE LEVEL 25 MMOL/L (20-31); CHLORIDE LEVEL 104 MMOL/L (98-107); CREATININE FOR GFR 0.61 MG/DL (0.55-1.30); GLOMERULAR FILTRATION RATE > 60.0 (>45); GLUCOSE, FASTING 130 MG/DL (74-106); POTASSIUM SERUM 4.6 MMOL/L (3.5-5.1); SODIUM LEVEL 134 MMOL/L (136-145)
[2022-06-23 08:00] VITALS: BP 140/67
[2022-06-23] MEDS: CLOPIDOGREL 75 MG TAB PO SCH (08:48)
[2022-06-23] MEDS: INSULIN LISPRO (NovoLOG) PER UNIT SC SCH ×4 (08:48→21:00)
[2022-06-23] MEDS: MAGNESIUM OXIDE 400MG TAB (MAG-OX) PO SCH (08:48)
[2022-06-23] MEDS: NICOTINE 14 MG/24 HR TRANSDERMAL TD SCH (08:49)
[2022-06-23] MEDS ORDERED: ALBUTEROL 90 MCG/ACT 8GM HFA INHALER INH PRN (09:15)
[2022-06-23 12:00] VITALS: BP 138/71
[2022-06-23 16:08] VITALS: BP 129/60
[2022-06-23 20:17] VITALS: BP 101/67
[2022-06-23] MEDS: ASPIRIN 81MG ENTERIC TABLET PO SCH (21:03)
[2022-06-23] MEDS: ATORVASTATIN 10 MG TAB PO SCH (21:03)
[2022-06-24 00:19] VITALS: BP 109/56
[2022-06-24] MEDS: metroNIDAZOLE 500 MG in IV 1 EA IV SCH ×2 (00:24→07:39)
[2022-06-24] MEDS: CEFEPIME HCL 2 GM in D5W MINI-BAG PLUS 50 ML IV SCH (03:13)
[2022-06-24] MEDS: VANCOMYCIN HCL 750 MG, VIAL MATE ADAPTER 1 EACH in D5W 250 ML IV SCH (06:04)
[2022-06-24] MEDS: HEPARIN SOD (PORCINE) 5000UNITS/ML 1ML VIAL/SYRINGE SQ SCH ×3 (06:05→21:07)
[2022-06-24] MEDS: INSULIN LISPRO (NovoLOG) PER UNIT SC SCH ×4 (07:28→20:23)
[2022-06-24] MEDS: DOCUSATE SODIUM 100MG CAPSULE PO PRN (07:38)
[2022-06-24] MEDS: MAGNESIUM OXIDE 400MG TAB (MAG-OX) PO SCH (07:38)
[2022-06-24] MEDS: NORCO, ANEXSIA 5/325MG TABLET (HYDROcodone/ACETAMINOPHEN) PO PRN ×3 (07:39→21:06)
[2022-06-24] MEDS: CLOPIDOGREL 75 MG TAB PO SCH (07:39)
[2022-06-24 08:30] LABS: HEMATOCRIT 32.5 % (36.0-47.0); HEMOGLOBIN 10.3 g/dl (12.0-15.5); MEAN CORPUSCULAR HEMOGLOBIN 28.9 pg (27.0-33.0); MEAN CORPUSCULAR HGB CONC 31.7 g/dl (32.0-36.5); MEAN CORPUSCULAR VOLUME 91.3 fl (80.0-96.0); PLATELET COUNT, AUTOMATED 186 10^3/uL (150-450); RED BLOOD COUNT 3.56 10^6/uL (4.00-5.40); WHITE BLOOD COUNT 5.5 10^3/uL (4.0-10.0)
[2022-06-24 08:57] LABS: MAGNESIUM LEVEL 1.6 MG/DL (1.8-2.4)
[2022-06-24 08:59] LABS: BLOOD UREA NITROGEN 13 MG/DL (9-23); CALCIUM LEVEL 8.7 MG/DL (8.3-10.6); CARBON DIOXIDE LEVEL 26 MMOL/L (20-31); CHLORIDE LEVEL 106 MMOL/L (98-107); GLOMERULAR FILTRATION RATE > 60.0 (>45); GLUCOSE, FASTING 125 MG/DL (74-106); PHOSPHORUS LEVEL 2.8 MG/DL (2.4-5.1); POTASSIUM SERUM 4.1 MMOL/L (3.5-5.1); SODIUM LEVEL 138 MMOL/L (136-145)
[2022-06-24] MEDS ORDERED: BACTRIM 160MG/800MG DS TAB PO SCH (09:00)
[2022-06-24] MEDS: NICOTINE 14 MG/24 HR TRANSDERMAL TD SCH (09:13)
[2022-06-24] MEDS ORDERED: MAG SULF 1GM/100ML (MAG RUN) 1 GM in IV 1 EA IV ONE (10:00)
[2022-06-24] MEDS ORDERED: OXYC-517 PO (10:31)
[2022-06-24] MEDS ORDERED: BACT800T5 PO (10:34)
[2022-06-24 11:53] VITALS: BP 142/67
[2022-06-24] MEDS ORDERED: MORPHINE 2 MG/ML 1ML VIAL IV STA (12:47)
[2022-06-24 16:00] VITALS: BP 139/62
[2022-06-24 20:00] VITALS: BP 118/56
[2022-06-24] MEDS: ASPIRIN 81MG ENTERIC TABLET PO SCH (21:07)
[2022-06-24] MEDS: ATORVASTATIN 10 MG TAB PO SCH (21:07)
[2022-06-24] MEDS: CEPHALEXIN 500 MG CAP PO SCH (21:07)
[2022-06-25] MEDS: NORCO, ANEXSIA 5/325MG TABLET (HYDROcodone/ACETAMINOPHEN) PO PRN ×3 (04:41→20:04)
[2022-06-25 04:58] LABS: HEMATOCRIT 32.7 % (36.0-47.0); HEMOGLOBIN 10.5 g/dl (12.0-15.5); MEAN CORPUSCULAR HEMOGLOBIN 29.1 pg (27.0-33.0); MEAN CORPUSCULAR HGB CONC 32.1 g/dl (32.0-36.5); MEAN CORPUSCULAR VOLUME 90.6 fl (80.0-96.0); PLATELET COUNT, AUTOMATED 182 10^3/uL (150-450); RED BLOOD COUNT 3.61 10^6/uL (4.00-5.40); WHITE BLOOD COUNT 4.5 10^3/uL (4.0-10.0)
[2022-06-25 05:33] LABS: MAGNESIUM LEVEL 1.7 MG/DL (1.8-2.4)
[2022-06-25 05:35] LABS: BLOOD UREA NITROGEN 10 MG/DL (9-23); CALCIUM LEVEL 8.9 MG/DL (8.3-10.6); CARBON DIOXIDE LEVEL 23 MMOL/L (20-31); CHLORIDE LEVEL 107 MMOL/L (98-107); CREATININE FOR GFR 0.62 MG/DL (0.55-1.30); GLOMERULAR FILTRATION RATE > 60.0 (>45); GLUCOSE, FASTING 97 MG/DL (74-106); POTASSIUM SERUM 4.5 MMOL/L (3.5-5.1); SODIUM LEVEL 138 MMOL/L (136-145)
[2022-06-25] MEDS: CEPHALEXIN 500 MG CAP PO SCH ×3 (06:25→21:44)
[2022-06-25] MEDS: HEPARIN SOD (PORCINE) 5000UNITS/ML 1ML VIAL/SYRINGE SQ SCH ×3 (06:25→21:45)
[2022-06-25] MEDS: INSULIN LISPRO (NovoLOG) PER UNIT SC SCH ×4 (07:18→20:10)
[2022-06-25 07:34] VITALS: BP 120/62
[2022-06-25] MEDS: MAGNESIUM OXIDE 400MG TAB (MAG-OX) PO SCH (08:45)
[2022-06-25] MEDS: ACETAMINOPHEN TAB 650MG DOSE (2X325MG) PO PRN ×2 (08:45→18:26)
[2022-06-25] MEDS: CLOPIDOGREL 75 MG TAB PO SCH (08:45)
[2022-06-25] MEDS: NICOTINE 14 MG/24 HR TRANSDERMAL TD SCH (08:45)
[2022-06-25 12:20] VITALS: BP 134/58
[2022-06-25 16:00] VITALS: BP 144/76
[2022-06-25 20:00] VITALS: BP 124/58
[2022-06-25] MEDS: ASPIRIN 81MG ENTERIC TABLET PO SCH (20:03)
[2022-06-25] MEDS: ATORVASTATIN 10 MG TAB PO SCH (20:03)
[2022-06-26] MEDS ORDERED: MORPHINE 2 MG/ML 1ML VIAL IV ONE (02:00)
[2022-06-26 04:51] LABS: HEMATOCRIT 31.5 % (36.0-47.0); MEAN CORPUSCULAR HEMOGLOBIN 29.1 pg (27.0-33.0); MEAN CORPUSCULAR HGB CONC 31.7 g/dl (32.0-36.5); MEAN CORPUSCULAR VOLUME 91.6 fl (80.0-96.0); PLATELET COUNT, AUTOMATED 173 10^3/uL (150-450); RED BLOOD COUNT 3.44 10^6/uL (4.00-5.40); WHITE BLOOD COUNT 4.6 10^3/uL (4.0-10.0)
[2022-06-26 05:22] LABS: MAGNESIUM LEVEL 1.7 MG/DL (1.8-2.4)
[2022-06-26] MEDS: CEPHALEXIN 500 MG CAP PO SCH ×3 (05:22→22:27)
[2022-06-26 05:23] LABS: BLOOD UREA NITROGEN 12 MG/DL (9-23); CALCIUM LEVEL 8.4 MG/DL (8.3-10.6); CARBON DIOXIDE LEVEL 23 MMOL/L (20-31); CHLORIDE LEVEL 108 MMOL/L (98-107); CREATININE FOR GFR 0.59 MG/DL (0.55-1.30); GLOMERULAR FILTRATION RATE > 60.0 (>45); GLUCOSE, FASTING 123 MG/DL (74-106); POTASSIUM SERUM 4.5 MMOL/L (3.5-5.1); SODIUM LEVEL 139 MMOL/L (136-145)
[2022-06-26] MEDS: HEPARIN SOD (PORCINE) 5000UNITS/ML 1ML VIAL/SYRINGE SQ SCH ×3 (05:23→22:27)
[2022-06-26] MEDS: INSULIN LISPRO (NovoLOG) PER UNIT SC SCH ×4 (07:30→20:47)
[2022-06-26 08:00] VITALS: BP 119/55
[2022-06-26] MEDS: CLOPIDOGREL 75 MG TAB PO SCH (09:24)
[2022-06-26] MEDS: NORCO, ANEXSIA 5/325MG TABLET (HYDROcodone/ACETAMINOPHEN) PO PRN (09:25)
[2022-06-26] MEDS: MAGNESIUM OXIDE 400MG TAB (MAG-OX) PO SCH (09:26)
[2022-06-26] MEDS: NICOTINE 14 MG/24 HR TRANSDERMAL TD SCH (09:27)
[2022-06-26] MEDS: oxyCODONE 5MG TAB PO PRN ×2 (11:45→21:20)
[2022-06-26 12:00] VITALS: BP 151/69
[2022-06-26] MEDS: GABAPENTIN 100 MG CAP PO SCH ×2 (13:05→21:19)
[2022-06-26] MEDS: MORPHINE 2 MG/ML 1ML VIAL IV PRN (17:40)
[2022-06-26] MEDS: ATORVASTATIN 10 MG TAB PO SCH (21:19)
[2022-06-26] MEDS: ASPIRIN 81MG ENTERIC TABLET PO SCH (21:19)
[2022-06-27] MEDS: oxyCODONE 5MG TAB PO PRN ×3 (02:51→14:58)
[2022-06-27] MEDS: HEPARIN SOD (PORCINE) 5000UNITS/ML 1ML VIAL/SYRINGE SQ SCH ×3 (05:56→20:39)
[2022-06-27] MEDS: CEPHALEXIN 500 MG CAP PO SCH ×3 (05:56→20:40)
[2022-06-27 06:00] VITALS: BP 117/65
[2022-06-27] MEDS: INSULIN LISPRO (NovoLOG) PER UNIT SC SCH ×4 (07:30→20:38)
[2022-06-27] MEDS: CLOPIDOGREL 75 MG TAB PO SCH (09:29)
[2022-06-27] MEDS: GABAPENTIN 100 MG CAP PO SCH ×2 (09:29→20:37)
[2022-06-27] MEDS: MAGNESIUM OXIDE 400MG TAB (MAG-OX) PO SCH (09:29)
[2022-06-27] MEDS: NICOTINE 14 MG/24 HR TRANSDERMAL TD SCH (09:30)
[2022-06-27 17:44] VITALS: BP 136/77
[2022-06-27] MEDS: NORCO, ANEXSIA 5/325MG TABLET (HYDROcodone/ACETAMINOPHEN) PO PRN (17:50)
[2022-06-27] MEDS: ASPIRIN 81MG ENTERIC TABLET PO SCH (20:37)
[2022-06-27] MEDS: ATORVASTATIN 10 MG TAB PO SCH (20:38)
[2022-06-27] MEDS: DOCUSATE SODIUM 100MG CAPSULE PO PRN (20:50)
[2022-06-28] MEDS: NORCO, ANEXSIA 5/325MG TABLET (HYDROcodone/ACETAMINOPHEN) PO PRN (03:01)
[2022-06-28 05:30] VITALS: BP 108/51
[2022-06-28] MEDS: HEPARIN SOD (PORCINE) 5000UNITS/ML 1ML VIAL/SYRINGE SQ SCH ×3 (05:37→21:21)
[2022-06-28] MEDS: CEPHALEXIN 500 MG CAP PO SCH ×3 (05:37→21:21)
[2022-06-28] MEDS: INSULIN LISPRO (NovoLOG) PER UNIT SC SCH ×4 (07:30→20:15)
[2022-06-28] MEDS: NICOTINE 14 MG/24 HR TRANSDERMAL TD SCH (10:57)
[2022-06-28] MEDS: MAGNESIUM OXIDE 400MG TAB (MAG-OX) PO SCH (10:58)
[2022-06-28] MEDS: GABAPENTIN 100 MG CAP PO SCH ×2 (10:58→21:21)
[2022-06-28] MEDS: oxyCODONE 5MG TAB PO PRN ×2 (10:58→17:05)
[2022-06-28] MEDS: CLOPIDOGREL 75 MG TAB PO SCH (10:59)
[2022-06-28] MEDS ORDERED: LACTULOSE 20GM/30ML SYRUP UDC PO ONE (14:00)
[2022-06-28] MEDS: SENNA 8.6 MG TAB (SENOKOT) PO PRN (15:09)
[2022-06-28] MEDS: DOCUSATE SODIUM 100MG CAPSULE PO PRN (15:09)
[2022-06-28] MEDS: MORPHINE 2 MG/ML 1ML VIAL IV PRN (17:46)
[2022-06-28] MEDS: ATORVASTATIN 10 MG TAB PO SCH (21:21)
[2022-06-28] MEDS: MIRALAX *UNIT DOSE* 17GM PACKET PO PRN (21:21)
[2022-06-28] MEDS: ASPIRIN 81MG ENTERIC TABLET PO SCH (21:21)
[2022-06-28] MEDS: ACETAMINOPHEN TAB 650MG DOSE (2X325MG) PO PRN (21:22)
[2022-06-29] MEDS: oxyCODONE 5MG TAB PO PRN ×2 (03:46→10:51)
[2022-06-29] MEDS: CEPHALEXIN 500 MG CAP PO SCH ×3 (05:03→22:06)
[2022-06-29] MEDS: HEPARIN SOD (PORCINE) 5000UNITS/ML 1ML VIAL/SYRINGE SQ SCH ×3 (05:03→22:05)
[2022-06-29 05:25] VITALS: BP 129/65
[2022-06-29] MEDS: INSULIN LISPRO (NovoLOG) PER UNIT SC SCH ×4 (07:30→19:46)
[2022-06-29] MEDS: MAGNESIUM OXIDE 400MG TAB (MAG-OX) PO SCH (08:19)
[2022-06-29] MEDS: NICOTINE 14 MG/24 HR TRANSDERMAL TD SCH (08:19)
[2022-06-29] MEDS: CLOPIDOGREL 75 MG TAB PO SCH (08:19)
[2022-06-29] MEDS: GABAPENTIN 100 MG CAP PO SCH ×2 (08:20→22:07)
[2022-06-29] MEDS: MIRALAX *UNIT DOSE* 17GM PACKET PO PRN (10:51)
[2022-06-29] MEDS: DOCUSATE SODIUM 100MG CAPSULE PO PRN (10:51)
[2022-06-29] MEDS: SENNA 8.6 MG TAB (SENOKOT) PO PRN (10:51)
[2022-06-29] MEDS ORDERED: FLEET OIL RETENTION ENEMA PR ONE (11:15)
[2022-06-29] MEDS ORDERED: LACTULOSE 20GM/30ML SYRUP UDC PO ONE (12:00)
[2022-06-29] MEDS: NORCO, ANEXSIA 5/325MG TABLET (HYDROcodone/ACETAMINOPHEN) PO PRN (15:48)
[2022-06-29] MEDS: ASPIRIN 81MG ENTERIC TABLET PO SCH (22:05)
[2022-06-29] MEDS: ACETAMINOPHEN TAB 650MG DOSE (2X325MG) PO PRN (22:06)
[2022-06-29] MEDS: ONDANSETRON 4MG 2ML VIAL IV PRN (22:06)
[2022-06-29] MEDS: ATORVASTATIN 10 MG TAB PO SCH (22:07)
[2022-06-30 05:20] VITALS: BP 127/67
[2022-06-30] MEDS: CEPHALEXIN 500 MG CAP PO SCH ×3 (05:27→21:44)
[2022-06-30] MEDS: ACETAMINOPHEN TAB 650MG DOSE (2X325MG) PO PRN ×2 (05:27→21:45)
[2022-06-30] MEDS: HEPARIN SOD (PORCINE) 5000UNITS/ML 1ML VIAL/SYRINGE SQ SCH ×3 (05:27→21:44)
[2022-06-30] MEDS: INSULIN LISPRO (NovoLOG) PER UNIT SC SCH ×4 (07:30→19:34)
[2022-06-30] MEDS: CLOPIDOGREL 75 MG TAB PO SCH (07:57)
[2022-06-30] MEDS: NICOTINE 14 MG/24 HR TRANSDERMAL TD SCH (07:57)
[2022-06-30] MEDS: MAGNESIUM OXIDE 400MG TAB (MAG-OX) PO SCH (07:57)
[2022-06-30] MEDS: GABAPENTIN 100 MG CAP PO SCH ×2 (07:57→21:45)
[2022-06-30] MEDS: NORCO, ANEXSIA 5/325MG TABLET (HYDROcodone/ACETAMINOPHEN) PO PRN (11:16)
[2022-06-30] MEDS: MORPHINE 2 MG/ML 1ML VIAL IV PRN (11:53)
[2022-06-30] MEDS: ANEXSIA, NORCO 7.5MG/325MG TABLET(HYDROCODONE/APAP) PO PRN (16:42)
[2022-06-30] MEDS: ONDANSETRON 4MG 2ML VIAL IV PRN (21:44)
[2022-06-30] MEDS: ASPIRIN 81MG ENTERIC TABLET PO SCH (21:45)
[2022-06-30] MEDS: ATORVASTATIN 10 MG TAB PO SCH (21:45)
[2022-06-30] MEDS: FLEET ENEMA PR PRN (21:45)
[2022-07-01] MEDS: HEPARIN SOD (PORCINE) 5000UNITS/ML 1ML VIAL/SYRINGE SQ SCH ×3 (06:07→20:52)
[2022-07-01] MEDS: CEPHALEXIN 500 MG CAP PO SCH ×2 (06:07→15:46)
[2022-07-01 06:38] VITALS: BP 116/63
[2022-07-01] MEDS: INSULIN LISPRO (NovoLOG) PER UNIT SC SCH ×2 (07:17→12:00)
[2022-07-01] MEDS: CLOPIDOGREL 75 MG TAB PO SCH (07:45)
[2022-07-01] MEDS: GABAPENTIN 100 MG CAP PO SCH ×2 (07:45→20:51)
[2022-07-01] MEDS: MAGNESIUM OXIDE 400MG TAB (MAG-OX) PO SCH (07:45)
[2022-07-01] MEDS: NICOTINE 14 MG/24 HR TRANSDERMAL TD SCH (07:46)
[2022-07-01] MEDS: ANEXSIA, NORCO 7.5MG/325MG TABLET(HYDROCODONE/APAP) PO PRN (18:09)
[2022-07-01] MEDS: ASPIRIN 81MG ENTERIC TABLET PO SCH (20:51)
[2022-07-01] MEDS: ATORVASTATIN 10 MG TAB PO SCH (20:51)
[2022-07-01] MEDS: metFORMIN XR 500MG TAB *GLUCOPHAGE XR PO SCH (20:51)
[2022-07-02] MEDS: CEPHALEXIN 500 MG CAP PO SCH ×5 (00:28→23:54)
[2022-07-02] MEDS: ANEXSIA, NORCO 7.5MG/325MG TABLET(HYDROCODONE/APAP) PO PRN ×3 (00:29→18:34)
[2022-07-02 05:03] VITALS: BP 122/61
[2022-07-02] MEDS: HEPARIN SOD (PORCINE) 5000UNITS/ML 1ML VIAL/SYRINGE SQ SCH ×3 (06:23→22:00)
[2022-07-02] MEDS: GABAPENTIN 100 MG CAP PO SCH ×2 (09:53→21:59)
[2022-07-02] MEDS: CLOPIDOGREL 75 MG TAB PO SCH (09:53)
[2022-07-02] MEDS: MAGNESIUM OXIDE 400MG TAB (MAG-OX) PO SCH (09:53)
[2022-07-02] MEDS: NICOTINE 14 MG/24 HR TRANSDERMAL TD SCH (09:54)
[2022-07-02] MEDS: FLEET ENEMA PR PRN (11:09)
[2022-07-02] MEDS: ASPIRIN 81MG ENTERIC TABLET PO SCH (21:59)
[2022-07-02] MEDS: metFORMIN XR 500MG TAB *GLUCOPHAGE XR PO SCH (21:59)
[2022-07-02] MEDS: ATORVASTATIN 10 MG TAB PO SCH (21:59)
[2022-07-02] MEDS: ONDANSETRON 4MG 2ML VIAL IV PRN (21:59)
[2022-07-03] MEDS: ANEXSIA, NORCO 7.5MG/325MG TABLET(HYDROCODONE/APAP) PO PRN (00:35)
[2022-07-03] MEDS: CEPHALEXIN 500 MG CAP PO SCH ×3 (05:46→18:26)
[2022-07-03] MEDS: HEPARIN SOD (PORCINE) 5000UNITS/ML 1ML VIAL/SYRINGE SQ SCH ×3 (05:46→21:07)
[2022-07-03] MEDS: MAGNESIUM OXIDE 400MG TAB (MAG-OX) PO SCH (07:53)
[2022-07-03] MEDS: GABAPENTIN 100 MG CAP PO SCH ×2 (07:53→21:06)
[2022-07-03] MEDS: NICOTINE 14 MG/24 HR TRANSDERMAL TD SCH (07:53)
[2022-07-03] MEDS: CLOPIDOGREL 75 MG TAB PO SCH (07:53)
[2022-07-03] MEDS: SENNA 8.6 MG TAB (SENOKOT) PO PRN (10:32)
[2022-07-03] MEDS: DOCUSATE SODIUM 100MG CAPSULE PO PRN (10:32)
[2022-07-03] MEDS: MIRALAX *UNIT DOSE* 17GM PACKET PO PRN (10:32)
[2022-07-03] MEDS: FLEET ENEMA PR PRN (18:37)
[2022-07-03] MEDS: ASPIRIN 81MG ENTERIC TABLET PO SCH (21:06)
[2022-07-03] MEDS: ATORVASTATIN 10 MG TAB PO SCH (21:06)
[2022-07-03] MEDS: metFORMIN XR 500MG TAB *GLUCOPHAGE XR PO SCH (21:06)
[2022-07-04] MEDS: CEPHALEXIN 500 MG CAP PO SCH ×5 (00:46→23:37)
[2022-07-04] MEDS: HEPARIN SOD (PORCINE) 5000UNITS/ML 1ML VIAL/SYRINGE SQ SCH ×3 (05:31→20:27)
[2022-07-04 06:00] VITALS: BP 121/60
[2022-07-04] MEDS: GABAPENTIN 100 MG CAP PO SCH ×2 (08:00→20:27)
[2022-07-04] MEDS: CLOPIDOGREL 75 MG TAB PO SCH (08:00)
[2022-07-04] MEDS: NICOTINE 14 MG/24 HR TRANSDERMAL TD SCH (08:00)
[2022-07-04] MEDS: MAGNESIUM OXIDE 400MG TAB (MAG-OX) PO SCH (08:00)
[2022-07-04] MEDS: ANEXSIA, NORCO 7.5MG/325MG TABLET(HYDROCODONE/APAP) PO PRN ×3 (11:03→23:38)
[2022-07-04] MEDS: ASPIRIN 81MG ENTERIC TABLET PO SCH (20:27)
[2022-07-04] MEDS: metFORMIN XR 500MG TAB *GLUCOPHAGE XR PO SCH (20:27)
[2022-07-04] MEDS: ATORVASTATIN 10 MG TAB PO SCH (20:27)
[2022-07-05 06:00] VITALS: BP 104/48
[2022-07-05] MEDS: HEPARIN SOD (PORCINE) 5000UNITS/ML 1ML VIAL/SYRINGE SQ SCH (07:04)
[2022-07-05] MEDS: CEPHALEXIN 500 MG CAP PO SCH ×2 (07:04→12:17)
[2022-07-05] MEDS ORDERED: PROB1CAP10 PO (07:59)
[2022-07-05] MEDS ORDERED: CEPH500T PO (07:59)
[2022-07-05] MEDS ORDERED: HYDR-4517 PO (07:59)
[2022-07-05] MEDS: NICOTINE 14 MG/24 HR TRANSDERMAL TD SCH (08:01)
[2022-07-05] MEDS: CLOPIDOGREL 75 MG TAB PO SCH (08:02)
[2022-07-05] MEDS: MAGNESIUM OXIDE 400MG TAB (MAG-OX) PO SCH (08:02)
[2022-07-05] MEDS: GABAPENTIN 100 MG CAP PO SCH (08:02)
== END 2022-07-05 12:30 | disposition home or self-care (01) | DRG 857 ==
LOC: M ED INP 12:21 → M PCU 12:31 → M MSPAV 06-26 18:56
PROVIDERS: ADMIT Internal Medicine; ATTEND Internal Medicine
PROC: 0JBB0ZZ Excision of Perineum Subcutaneous Tissue and Fascia, Open Approach (ICD-10-PCS; principal; 2022-06-22 14:15)
DX: T81.49XA Infection following a procedure, other surgical site, initial encounter (principal); T81.30XA Disruption of wound, unspecified, initial encounter; I73.9 Peripheral vascular disease, unspecified; E11.51 Type 2 diabetes mellitus with diabetic peripheral angiopathy without gangrene; E11.42 Type 2 diabetes mellitus with diabetic polyneuropathy; B95.61 Methicillin susceptible Staphylococcus aureus infection as the cause of diseases classified elsewhere; I10 Essential (primary) hypertension; D64.9 Anemia, unspecified; F17.210 Nicotine dependence, cigarettes, uncomplicated; J44.9 Chronic obstructive pulmonary disease, unspecified; K59.00 Constipation, unspecified; F41.9 Anxiety disorder, unspecified; F32.A Depression, unspecified; H53.9 Unspecified visual disturbance; Z79.84 Long term (current) use of oral hypoglycemic drugs; Z79.82 Long term (current) use of aspirin; Z79.2 Long term (current) use of antibiotics; Z79.899 Other long term (current) drug therapy; Z88.0 Allergy status to penicillin; Z88.5 Allergy status to narcotic agent; Z91.048 Other nonmedicinal substance allergy status; Z71.6 Tobacco abuse counseling; Z20.822 Contact with and (suspected) exposure to COVID-19; Z95.828 Presence of other vascular implants and grafts

== ENCOUNTER → 2022-08-27 | Outpatient (CLI) | payer OTHER ==
[~2022-08-27] MED LIST changes: +BACT800T5 PO; +CEPH500T PO; +HYDR-4517 PO; +ISOVUE-370 76% 100ML VIAL As Ordered ONE; +OXYC-517 PO; +PROB1CAP10 PO
== END ==
LOC: M RAD 08:47
PROVIDERS: ATTEND Surgery Vascular Surgery
DX: T81.31XA Disruption of external operation (surgical) wound, not elsewhere classified, initial encounter (principal); I70.213 Atherosclerosis of native arteries of extremities with intermittent claudication, bilateral legs; G57.71 Causalgia of right lower limb; I70.0 Atherosclerosis of aorta; I70.1 Atherosclerosis of renal artery; Z95.828 Presence of other vascular implants and grafts; K40.90 Unilateral inguinal hernia, without obstruction or gangrene, not specified as recurrent; M48.061 Spinal stenosis, lumbar region without neurogenic claudication; Z90.49 Acquired absence of other specified parts of digestive tract; K44.9 Diaphragmatic hernia without obstruction or gangrene; I70.203 Unspecified atherosclerosis of native arteries of extremities, bilateral legs
CPT/HCPCS: 75635; Q9967

== ENCOUNTER → 2023-03-10 | Outpatient (CLI) | payer OTHER ==
[~2023-03-10] MED LIST changes: -ISOVUE-370 76% 100ML VIAL As Ordered ONE
== END ==
LOC: M RAD 08:34
PROVIDERS: ATTEND Physician Assistant
DX: I73.9 Peripheral vascular disease, unspecified (principal)

== ENCOUNTER → 2023-12-08 | Outpatient (CLI) | payer OTHER | LOC: M RAD 13:08 | PROVIDERS: ATTEND Surgery Vascular Surgery | DX: I73.9 Peripheral vascular disease, unspecified (principal); M79.604 Pain in right leg; R22.41 Localized swelling, mass and lump, right lower limb; I87.1 Compression of vein ==

== ENCOUNTER → 2024-06-11 | Outpatient (CLI) | payer OTHER | LOC: M RAD 11:47 | PROVIDERS: ATTEND Physician Assistant | DX: I73.9 Peripheral vascular disease, unspecified (principal); R09.89 Other specified symptoms and signs involving the circulatory and respiratory systems ==